=== PATIENT | male | born 1975 | race Hispanic/Latino ===

== ENCOUNTER 2019-07-12 19:43 | Emergency (ER) | payer BC ==
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
[2019-07-13 02:30] VITALS: BP 122/80
[2019-07-13] MEDS ORDERED: BALANCED SALT IRRIG 1 DROPS, TETRACAINE 0.5% 1 DROPS, FLUORESCEIN 1 MG OD ONE (02:47)
[2019-07-13] MEDS ORDERED: FLUORESCEIN 1 MG STRIP OP ONE (03:05)
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
--- NOTE | 2019-07-13 05:06 | Cat Scan Report ---
CT orbit/ear/fossa wo con INDICATION: orbital ecchymosis with left periorbital tendernes. TECHNIQUE: All CT scans at this location are performed using the following dose modulation technique: Automated exposure control. CONTRAST: None. COMPARISON: None available. FINDINGS: Mild thickening at the ethmoid, sphenoid and maxillary sinuses. Negative for sinus air-flui d level. No bony injury or significant soft tissue injury. IMPRESSION: 1. Negative for significant bony or soft tissue injury. 2. Mild sinus mucosal thickening. Signer Name: Bradley Becker MD Signed: 07/13/2019 5:02 AM Workstation Name: [id number]
== END 2019-07-13 06:34 | disposition home or self-care (01) ==
LOC: ED 19:43
DX: H11.32 Conjunctival hemorrhage, left eye (principal); M54.10 Radiculopathy, site unspecified; F32.9 Major depressive disorder, single episode, unspecified; F41.9 Anxiety disorder, unspecified; E78.00 Pure hypercholesterolemia, unspecified; Z88.1 Allergy status to other antibiotic agents
CPT/HCPCS: 70480